=== PATIENT | female | born 2000 | race Two or more races ===

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

== ENCOUNTER 2024-02-14 23:49 | Emergency (ER) | payer BC, MEDICAID ==
[~2024-02-14] VITALS: Ht 157.5 cm; Wt 58.5 kg
[~2024-02-14 23:49] MED LIST changes: -CEPH-322 PO; +CEPH250C PO; +DOCU-265 PO; +HYDR-4902 PO; +IBUP-1455 PO
[2024-02-15] MEDS ORDERED: PRED20TA2 PO (02:58)
[2024-02-15] MEDS ORDERED: ACET500T58 PO (02:58)
[2024-02-15] MEDS ORDERED: AMOX875T4 PO (02:58)
[2024-02-15 03:30] VITALS: BP 120/64; PULSE 95; RESP 18; TEMP 97.9; O2SAT 97
== END 2024-02-15 03:34 | disposition home or self-care (01) ==
LOC: ER 23:49
DX: J03.90 Acute tonsillitis, unspecified (principal); R59.0 Localized enlarged lymph nodes; Z88.6 Allergy status to analgesic agent
CPT/HCPCS: 70490

== ENCOUNTER 2024-04-17 18:00 | Emergency (ER) | payer MEDICAID ==
[~2024-04-17] VITALS: Ht 157.5 cm; Wt 64.0 kg
[~2024-04-17 18:00] MED LIST changes: +ACET500T58 PO; +AMOX875T4 PO; +PRED20TA2 PO
--- NOTE | 2024-04-17 18:38 | ED.PDOC ---
History of Present Illness HPI Comments 23-year-old female presents with a chief complaint of syncope x onset 0300 this morning with associated headache, nausea, vomiting, and dizziness. Patient reports that she cannot recall all the events that occurred, but remembers that she was on her bed and then lost consciousness. Patient currently has no active vomiting at this time. Patient reports one episode of emesis. Patient is alert and oriented x 4. No other symptoms or modifying factors present at this time. Chief Complaint: Head Injury Time Seen by MD: 18:20 Primary Care Provider: UNKNOWN Reviewed Notes: Medications, Allergies Allergies: Coded Allergies: Oxcarbazepine (Verified Allergy, Unknown, 12/09/21) Home Meds Active Scripts Ondansetron Odt 4MG Tab (ZOFRAN PO) 4 Mg Tb, 4 MG PO Q8HPRN PRN for 3 Days, #9 TAB ODT TAB-DISSOLVE IN MOUTH, THEN SWALLOW Prov:STEPAN MARTINEZ MD 04/17/24 Acetaminophen (Acetaminophen Er) 650 Mg Tab, 650 MG PO Q6HPRN PRN for 5 Days, #20 TAB Prov:STEPAN MARTINEZ MD 04/17/24 Prednisone (Prednisone) 20 Mg Tab, 20 MG PO BID for 5 Days, #10 TAB 0 Refills Prov:AMOS ARRINGTON 02/15/24 Acetaminophen (Acetaminophen) 500 Mg Tab, 500 MG PO Q4HPRN, #30 TAB 0 Refills Prov:AMOS ARRINGTON 02/15/24 Amoxicillin & Pot Clavulanate (Amoxicillin/Potassium Cla) 875 Mg Tab, 1 TAB PO BID for 7 Days, #14 TAB 0 Refills Prov:AMOS ARRINGTON 02/15/24 Hydrocodone-Acetaminophen (Hydrocodone Bitartrate/AC 5-325 mg) 1 Tab Tab, 1 TAB PO Q6HPRN PRN, #15 TAB Prov:JACOBFANNIE Y 12/15/21 Ibuprofen Micronized (Ibuprofen) 800 Mg Tab, 800 MG PO Q8HP PRN, #20 TAB Prov:FANNIE JACOB Y DO 12/15/21 Docusate Sodium (Docusate Sodium) 100 Mg Cap, 100 MG PO Q12HR PRN, #30 CAP Prov:FANNIE JACOB DO 12/15/21 Reported Medications Cephalexin (KEFLEX CAPSULE) 250 Mg Cp, 500 MG PO QID for 7 Days 12/02/21 Vit W/ Ferrous Fumara (PNV PLUS MULTIVI) Plus Tab, 1 OR DAILY, TAB 10/23/21 Information Source: Patient Mode of Arrival: Wheelchair Severity: Moderate Timing: Hours Duration: Since onset Prehospital treatment: None Vital Signs Vital Signs Date Time Temp Pulse Resp B/P (MAP) Pulse Ox O2 Delivery O2 Flow Rate FiO2 04/17/24 20:41 98.2 102 16 133/86 (102) 97 98.2 Physical Exam General: Awake, alert and oriented. No acute distress. Skin: Skin in warm, dry and intact. Appropriate color for ethnicity. Nailbeds p ink with no cyanosis. HEENT: The head is normocephalic and atraumatic. Conjunctivae are clear without exudates or hemorrhage. Sclera is non-icteric. EOM are intact. No signs of nystagmus. Eyelids are normal in appearance without swelling or lesions. Oral mucosa is pink and moist Neck: The neck is supple with normal range of motion. No JVD. Cardiac: Heart rate and rhythm are normal. No murmurs, gallops, or rubs are auscultated. Respiratory: No signs of respiratory distress. Lung sounds are clear in all lobes bilaterally without rales, ronchi, or wheezes. Abdominal: Abdomen is soft, non-tender without distention. Bowel sounds are present and normoactive in all four quadrants. Extremities: Upper and lower extremities are atraumatic in appearance without deformity or edema. Neurological: The patient is awake, alert and oriented to person, place, and time with normal speech. Speech is clear. There is no facial asymmetry. Gait and tandem walk normal. Strength grossly intact. Psychiatric: Appropriate mood and affect. Good judgement and insight. No visual or auditory hallucinations. Review of Systems: REVIEW OF SYSTEMS: No fever, no chills, or fatigue HEENT: No sore throat, no earache, no congestion, no neck pain. Cardiac: No chest pain. No palpitations. Lungs: No shortness of breath, no cough. GI: Positive nausea and vomiting, no diarrhea, no constipation, no abdominal pain : No dysuria, frequency, or urgency. No hematuria. Musculoskeletal: No joint pain , no joint swelling, no extremity edema. Skin: No rash, no itching. Neuro: Positive headache, positive dizziness, no weakness Past Medical History PAST MEDICAL HISTORY: Depression Surgical History: Denies all surgeries INDUSTRIAL RELATIONS SPECIALIST History: No Pertinent INDUSTRIAL RELATIONS SPECIALIST History Family History Family History: Unknown Social History Smoker: Non-Smoker Alcohol: Denies ETOH Use Drugs: Denies Drug Use Lives In: Home Was a procedure done? Was a procedure done?: No Differential Dx Considerations may include: DDX includes MSK trauma, facial fractures, ICH or traumatic SAH, C-spine injury, other X-Ray, Labs, Meds, VS Vital Signs Date Time Temp Pulse Resp B/P (MAP) Pulse Ox O2 Delivery O2 Flow Rate FiO2 04/17/24 20:41 98.2 102 16 133/86 (102) 97 98.2 04/17/24 18:07 97.6 116 18 99/69 (79) 95 Time of 1ST Reevaluation: 18:50 Reevaluation 1ST: Unchanged Patient Education/Counseling: Diagnosis, Treatment, Prognosis Family Education/Counseling: No Family Present Departure 1 Departure Time of Disposition: 19:13 Impression: Primary Impression: Head injury Additional Impression: Headache Disposition: 01 HOME / SELF CARE / HOMELESS Condition: Stable Additional Instructions: ED DISCHARGE INSTRUCTIONS Instructions: Please read all instructions provided in this packet carefully. Although you have been discharged from the Emergency Department, this does not mean that you have a "clean bill of health". []No definitive diagnosis for your symptoms has been made today. It is possible that you are in the process of developing a serious illness. This is why you must return to the ED without fail if any new or worsening symptoms (especially if your symptoms include chest pain, trouble breathing, abdominal pain, fever, headache, confusion, trouble seeing, or trouble walking) It is also very important that you see a primary care doctor within the next 3-5 days to follow up. If you are unable to get an appointment, return to the ED for re-evaluation. Head Injury: Care Instructions Table of Contents Overview How can you care for yourself at home? When should you call for help? Credits Head Injury: Care Instructions Table of Contents Overview How can you care for yourself at home? When should you call for help? Credits Overview Most injuries to the head are minor. Bumps, cuts, and scrapes on the head and face usually heal well and can be treated the same as injuries to other parts of the body. Although it's rare, once in a while a more serious problem shows up after you are home. So it's good to be on the lookout for symptoms for a day or two. Follow-up care is a andrews part of your treatment and safety. Be sure to make and go to all appointments, and call your doctor if you are having problems. It's also a good idea to know your test results and keep a list of the medicines you take. How can you care for yourself at home? Follow your doctor's instructions. The doctor will tell you if you need someone to watch you closely for the next 24 hours or longer. Take it easy for the next few days or more if you are not feeling well. Ask your doctor when it's okay for you to go back to activities like driving a car, riding a bike, or operating machinery. When should you call for help? Call 911 anytime you think you may need emergency care. For example, call if: You have a seizure. You passed out (lost consciousness). You are confused or can't stay awake. You have a headache that gets worse and does not go away. You have new vision changes or one pupil (the black part in the middle of the eye) that is larger than the other. You have slurred speech, balance problems, or decreased coordination. Call your doctor now or seek immediate medical care if: You have new or worse vomiting. You feel less alert. You have new weakness or numbness in any part of your body. You have new symptoms, such as unclear thinking or changes in mood. Watch closely for changes in your health, and be sure to contact your doctor if: You do not get better as expected. Credits for Head Injury: Care Instructions Current as of: May 05, 2023 Author: [employer] Staff e-Prescriptions Ondansetron Odt 4MG Tab (ZOFRAN PO) 4 Mg Tb 4 MG PO Q8HPRN PRN for 3 Days, #9 TAB ODT TAB-DISSOLVE IN MOUTH, THEN SWALLOW Prov: STEPAN MARTINEZ MD 04/17/24 Acetaminophen (Acetaminophen Er) 650 Mg Tab 650 MG PO Q6HPRN PRN for 5 Days, #20 TAB Prov: STEPAN MARTINEZ MD 04/17/24 Comments 22-year-old female with head injury and suspected or loss of consciousness. Patient neurologically intact during the ED evaluation. Thayer stable for discharge home with prompt follow up with primary care provider and return precautions. I reviewed the following notes from the pt's past medical encounters: Previous visit 02/15/2024 The following tests were ordered, and results were reviewed by me: Labs and imaging Additional information was gathered from interviewing the following independent historians: Aboriginal Community Council Member at bedside I reviewed and agreed with the following test results read by other providers: CT head, no acute intracranial hemorrhage or skull fracture. Agree with radiologist's interpretation I discussed treatments and results with patient. Critical Care Note Critical Care Time?: No Stability Stability form required: No I personally scribed for STEPAN MARTINEZ MD ([email or web address]) on 04/17/24 at 18:38. Electronically submitted by Leonardo Rizvi ([email or web address]). STEPAN MARTINEZ MD Apr 17, 2024 18:38
[2024-04-17] MEDS ORDERED: ZOFR4T PO (19:16)
[2024-04-17] MEDS ORDERED: ACET650T12 PO (19:16)
--- NOTE | 2024-04-17 20:49 | DVH ---
Exam: CT HEAD WITHOUT CONTRAST History: head injury, unk LOC Technique: [address] images through the posterior fossa and the supratentorial compart ment were acquired without contrast and imaged using soft tissue and bone algorithms. RADIATION DOSE: DLP 1067.69 mGy.cm; CTDI vol 54.17 mGy. Comparison: CT NECK WITHOUT CONTRAST on DOS: 02/15/24 Findings: There is no evidence of an intracranial hemorrhage, acute large vessel infarct, mass effect, or midli ne shift. Mucoperiosteal thickening of the left maxillary sinus. The calvarium, orbits, remaining paranasal sin uses, sella, middle ears, and mastoids are unremarkable. The superficial soft tissues are within normal limits. Impression: 1. No acute intracranial abnormality.
[2024-04-17] MEDS: ACETAMINOPHEN 325 MG TAB PO ONE (23:26)
[2024-04-17] MEDS: ONDANSETRON ODT 4 MG TAB PO ONE (23:26)
[2024-04-17 23:36] VITALS: BP 123/81; PULSE 87; RESP 20; TEMP 98.2; O2SAT 99
== END 2024-04-17 23:41 | disposition home or self-care (01) ==
LOC: ER 18:00
DX: S09.90XA Unspecified injury of head, initial encounter (principal); R55 Syncope and collapse; R42 Dizziness and giddiness; Z79.52 Long term (current) use of systemic steroids; X58.XXXA Exposure to other specified factors, initial encounter; Y93.89 Activity, other specified; Y92.89 Other specified places as the place of occurrence of the external cause; Y99.8 Other external cause status
CPT/HCPCS: 70450; 99284; Q0162; 81025

== ENCOUNTER 2024-05-04 19:26 | Emergency (ER) | payer MEDICAID ==
[~2024-05-04] VITALS: Ht 157.5 cm; Wt 62.0 kg
[~2024-05-04 19:26] MED LIST changes: +ACET650T12 PO; +ZOFR4T PO
--- NOTE | 2024-05-04 20:20 | ED.PDOC ---
HPI (NEURO) HPI Comments This is a 23-year-old female presents to the ED for medical clearance. 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 Patient states it was 1 episode and has resolved since. She notes history of epilepsy when she was young she was on medication as a child however denies any medications right now last seizure when she was 5. She reports no chest pain, shortness of breath, dizziness, difficulty breathing, abdominal pain, belly pain, seizure activity, fevers or chills. Time Seen by MD: 20:11 Primary Care Provider: UNKNOWN Reviewed Notes: Nurses Notes, Medications, Allergies Information Source: Patient Severity: Mild Past Medical History PAST MEDICAL HISTORY: Depression Past Medical History (Other): Epilepsy Surgical History: Denies all surgeries CRIMPER ASSEMBLER History: No Pertinent CRIMPER ASSEMBLER History Family History Family History: Reviewed,noncontributory to illness, Unknown Social History Smoker: Non-Smoker Alcohol: Denies ETOH Use Drugs: Denies Drug Use Lives In: Home Constitutional: denies: chills, diaphoresis, fatigue, fever, malaise, sweats, weakness, others EENTM: denies: blurred vision, double vision, ear bleeding, ear discharge, ear drainage, ear pain, ear ringing, eye pain, eye redness, hearing loss, mouth pain, mouth swelling, nasal discharge, nose bleeding, nose congestion, nose pain, photophobia, tearing, throat pain, throat swelling, voice changes, others Respiratory: denies: cough, hemoptysis, orthopnea, SOB at rest, shortness of breath, SOB with excertion, stridor, wheezing, others Cardiovascular: denies: chest pain, dizzy spells, diaphoresis, Dyspnea on exertion, edema, irregular heart beat, left arm pain, lightheadedness, palpitations, PND, syncope, others Gastrointestinal: denies: abdomen distended, abdominal pain, blood streaked bowels, constipated, diarrhea, dysphagia, difficulty swallowing, hematemesis, melena, nausea, poor appetite, poor fluid intake, rectal bleeding, rectal pain, vomiting, others Genitourinary: denies: abnormal vagina bleeding, burning, dyspareunia, dysuria, flank pain, frequency, hematuria, incontinence, pain, , vagina discharge, urgency, others Neurological: denies: dizziness, fainting, headache, left sided numbness, left sided weakness, numbness, paresthesia, pre-existing deficit, right sided numbness, right sided weakness, seizure, speech problems, tingling, tremors, weakness, others Musculoskeletal: denies: back pain, gout, joint pain, joint swelling, muscle pain, muscle stiffness, neck pain, others Integumetry: denies: bruises, change in color, change in hair/nails, dryness, laceration, lesions, lumps, rash, wounds, others Allergic/Immunocompromised: denies: Difficulty Healing, Frequent Infections, Hives, Itching, others Hematologic/Lymphatic: denies: anemia, blood clots, easy bleeding, easy bruising, swollen glands, others Endocrine: denies: excessive hunger, excessive sweating, excessive thirst, excessive urination, flushing, intolerance to cold, intolerance to heat, unexplained weight gain, unexplained weight loss, others Psychiatric: denies: anxiety, bipolar disorder, depression, hopeless, panic disorder, schizophrenia, sleepless, suicidal, others Physical Exam General Appearance: No Apparent Distress, Normal HEENT: Normal ENT Inspection, Pharynx Normal, TMs Normal Neck: Full Range of Motion, Non-Tender, Normal, Normal Inspection Respiratory: Chest Non-Tender, Lungs Clear, No Accessory Muscle Use, No Respiratory Distress, Normal Breath Sounds Cardiovascular: No Edema, No JVD, No Murmur, No Gallop, Normal Peripheral Pulses, Regular Rate/Rhythm Breast Exam: Deferred Gastrointestinal: No Organomegaly, Non Tender, No Pulsatile Mass, Normal Bowel Sounds, Soft Genitalia: Deferred Pelvic: Deferred Rectal: Deferred Extremities: Normal capillary refill, Normal inspection, Normal range of mot ion, Non-tender, No pedal edema Musculoskeletal : Apperance: Normal Neurologic: Alert, agriculture extension specialist II-XII nml as Tested, No Motor Deficits, Normal Affect, Normal Mood, No Sensory Deficits Cerebellar Function: Normal Reflexes: Normal Skin: Dry, Normal Color, Warm Lymphatic: No Adenopathy Was a procedure done? Was a procedure done?: No Differential Diagnosis (SZ) General Weakness: Electrolyte imbalance, Hypoglycemia X-Ray, Labs, Meds, VS Comment Physical exam grossly benign. Patient denies any symptoms at this time. Patient claimed to work on a forklift advised to follow up with her PCP in 2-3 days for re-evaluation. ER return precautions given patient indicated unde rstanding agrees with discharge plan of care. Time of 1ST Reevaluation: 20:16 Reevaluation 1ST: Improved Patient Education/Counseling: Diagnosis, Treatment, Prognosis, Need For Follow Up Family Education/Counseling: No Family Present Departure 1 Departure Time of Disposition: 20:16 Impression: Primary Impression: Dizziness and giddiness Disposition: 01 HOME / SELF CARE / HOMELESS Condition: Stable Additional Instructions: Physical exam grossly benign. Patient is asymptomatic. Patient clear to work on [employer]. Discharged With: Self Critical Care Note Critical Care Time?: No Stability Stability form required: DENISA Barrow [facility] May 04, 2024 20:20
[2024-05-04 22:00] VITALS: BP 102/77; PULSE 92; RESP 16; TEMP 97.8; O2SAT 99
== END 2024-05-04 22:29 | disposition home or self-care (01) ==
LOC: ER 19:26
DX: R42 Dizziness and giddiness (principal); G40.909 Epilepsy, unspecified, not intractable, without status epilepticus

== ENCOUNTER 2024-05-23 15:44 | Emergency (ER) | payer MEDICAID ==
[~2024-05-23] VITALS: Ht 157.5 cm; Wt 59.0 kg
[2024-05-23 16:00] VITALS: BP 111/78; PULSE 92; RESP 15; O2SAT 97
--- NOTE | 2024-05-23 17:11 | ED.PDOC ---
Eye-HPI HPI Comments 23 year old with hx of epilepsy presents for tooth pain x 2 days located to the LLQ Last dental apt today and is pending insurance authorization for wisdom tooth extraction C/o pain rated 8/10 No other complaint. Denies c/p sob Chief Complaint: Tooth Pain Time Seen by MD: 17:00 Primary Care Provider: UNKNOWN Reviewed Notes: Nurses Notes, Medications, Allergies Allergies: Coded Allergies: Oxcarbazepine (Verified Allergy, Unknown, 12/09/21) Home Meds Active Scripts Acetaminophen W/ Codeine (Tylenol W/Cod #3) 1 Tab Tb, 1 TAB PO Q8HP PRN for 5 Days, #15 TAB 0 Refills Prov:AMADEO SWARTZ OUTSIDE RESIDENTIAL SALES PROFESSIONAL 05/23/24 Ondansetron Odt 4MG Tab (ZOFRAN PO) 4 Mg Tb, 4 MG PO Q8HPRN PRN for 3 Days, #9 T AB ODT TAB-DISSOLVE IN MOUTH, THEN SWALLOW Prov:STEPAN MARTINEZ MD 04/17/24 Acetaminophen (Acetaminophen Er) 650 Mg Tab, 650 MG PO Q6HPRN PRN for 5 Days, #20 TAB Prov:STEPAN MARTINEZ MD 04/17/24 Prednisone (Prednisone) 20 Mg Tab, 20 MG PO BID for 5 Days, #10 TAB 0 Refills Prov:AMOS ARRINGTON 02/15/24 Acetaminophen (Acetaminophen) 500 Mg Tab, 500 MG PO Q4HPRN, #30 TAB 0 Refills Prov:AMOS ARRINGTON 02/15/24 Amoxicillin & Pot Clavulanate (Amoxicillin/Potassium Cla) 875 Mg Tab, 1 TAB PO BID for 7 Days, #14 TAB 0 Refills Prov:AMOS ARRINGTON 02/15/24 Hydrocodone-Acetaminophen (Hydrocodone Bitartrate/AC 5-325 mg) 1 Tab Tab, 1 TAB PO Q6HPRN PRN, #15 TAB Prov:JACOBFANNIE Y DO 12/15/21 Ibuprofen Micronized (Ibuprofen) 800 Mg Tab, 800 MG PO Q8HP PRN, #20 TAB Prov:JACOBVALZMA Y DO 12/15/21 Docusate Sodium (Docusate Sodium) 100 Mg Cap, 100 MG PO Q12HR PRN, #30 CAP Prov:JACOBVALZMARY Y DO 12/15/21 Reported Medications Cephalexin (KEFLEX CAPSULE) 250 Mg Cp, 500 MG PO QID for 7 Days 12/02/21 Vit W/ Ferrous Fumara (PNV PLUS MULTIVI) Plus Tab, 1 OR DAILY, TAB 10/23/21 Information Source: Patient Mode of Arrival: Ambulatory Past Medical History PAST MEDICAL HISTORY: Depression Surgical History: Denies all surgeries CASHIERS BUSSERS FOOD RUNNERS History: No Pertinent CASHIERS BUSSERS FOOD RUNNERS History Family History Family History: Reviewed,noncontributory to illness, Unknown Social History Smoker: Non-Smoker Alcohol: Denies ETOH Use Drugs: Denies Drug Use Lives In: Home All Other Systems: Reviewed and Negative (per hpi) Physical Exam General Appearance: No Apparent Distress, Normal HEENT: Normal ENT Inspection, Pharynx Normal, Other Neck: Full Range of Motion, Non-Tender, Normal, Normal Inspection Respiratory: Chest Non-Tender, Lungs Clear, No Accessory Muscle Use, No Respiratory Distress, Normal Breath Sounds Cardiovascular: No Edema, No JVD, No Murmur, No Gallop, Normal Peripheral Pulses, Regular Rate/Rhythm Breast Exam: Deferred Gastrointestinal: No Organomegaly, Non Tender, No Pulsatile Mass, Normal Bowel Sounds, Soft Genitalia: Deferred Pelvic: Deferred Rectal: Deferred Extremities: No calf tenderness, Normal capillary refill, Normal inspection, Normal range of motion, Non-tender, No pedal edema Musculoskeletal : Apperance: Normal Neurologic: Alert, roughener II-XII nml as Tested, No Motor Deficits, Normal Affect, Normal Mood, No Sensory Deficits Cerebellar Function: Normal Reflexes: Normal Skin: Dry, Normal Color, Warm Lymphatic: No Adenopathy Was a procedure done? Was a procedure done?: No EENT DIFF Eye: Other X-Ray, Labs, Meds, VS Vital Signs Date Time Temp Pulse Resp B/P (MAP) Pulse Ox O2 Delivery O2 Flow Rate FiO2 05/23/24 16:04 Room Air 0 05/23/24 16:00 98.6 92 15 111/78 (89) 97 Current Medications Medications (Trade) Dose Ordered Sig/Maya Route Start Time Stop Time Status Last Admin Acetaminophen/ Hydrocodone Bitart ([place] 7.5/325MG Tab) 1 tab ONCE ONCE PO 05/23/24 17:15 05/23/24 17:16 DC 05/23/24 17:41 Methylprednisolone Sodium Succinate (Solu Medrol) 125 mg ONCE ONCE IM 05/23/24 17:15 05/23/24 17:16 DC 05/23/24 17:41 Benzocaine (Hurricaine [place]) 1 spr ONCE ONCE MT 05/23/24 17:15 05/23/24 17:16 DC 05/23/24 17:41 X-Ray, Labs, Meds, VS Comment On reevaluation, patient had symptomatic improvement. Patient is stable for discharge at this time. External notes reviewed. Test results and diagnostic imaging interpreted. All diagnostic findings, discharge care, education and instructions provided Follow-up with dental provider in 24-48 hours. Patient verbalized understanding and agreed to treatment plan Vital signs stable, afebrile, no acute distress noted Patient ambulatory with strong steady gait Advised to return precautions for any new or worsening symptoms, return to ER immediately for re-evaluation Patient is aware that the purpose of this visit was for an acute medical emergency requiring emergent stabilization. Chronic conditions, including malignancies have not been ruled out. Patient is instructed to follow up with PCP as directed and discharge instructions for continued care and workup. If un able to arrange follow-up, patient is to return to the emergency department for reassessment. Patient (parent or legal guardian if applicable) was given verbal and written discharge instructions and acknowledges understanding. Time of 1ST Reevaluation: 17:00 Reevaluation 1ST: Improved Patient Education/Counseling: Diagnosis, Treatment Family Education/Counseling: Diagnosis, Treatment Departure 1 Departure Time of Disposition: 17:28 Impression: Primary Impression: Tooth pain Disposition: HOME / SELF CARE / HOMELESS Condition: Stable e-Prescriptions Acetaminophen W/ Codeine (Tylenol W/Cod #3) 1 Tab Tb 1 TAB PO Q8HP PRN for 5 Days, #15 TAB 0 Refills Prov: AMADEO SWARTZ NP 05/23/24 Discharged With: Self Critical Care Note Critical Care Time?: No Stability Stability form required: No Heart Score Heart Score: Heart Score Response (Comments) Value History N/A 0 EKG N/A 0 Age N/A 0 Risk Factors N/A 0 Troponin N/A 0 Total 0 AMADEO SWARTZ NP May 23, 2024 17:11
[2024-05-23] MEDS ORDERED: ACE3T PO (17:30)
[2024-05-23] MEDS: BENZOCAINE (DENTAL) 20 % SPRAY 60ML MT ONE (17:41)
[2024-05-23] MEDS: methylPREDNISolone SOD SUCC 125 MG/2 ML VL IM ONE (17:41)
[2024-05-23] MEDS: HYDROcodone-ACET 7.5/325MG TAB PO ONE (17:41)
== END 2024-05-23 17:53 | disposition home or self-care (01) ==
LOC: ER 15:44
DX: K08.89 Other specified disorders of teeth and supporting structures (principal); Z88.8 Allergy status to other drugs, medicaments and biological substances; Z79.899 Other long term (current) drug therapy
CPT/HCPCS: 96372; 99283; J2919

== ENCOUNTER → 2024-08-18 | Outpatient (CLI) | payer MEDICAID ==
[~2024-08-18] MED LIST changes: +ACE3T PO
[2024-08-18 09:02] LABS: Basophils # (auto) 0.1 10 ^3/uL (0-0.2); Eosinophils # (auto) 0.2 10 ^3/uL (0-0.8); Hematocrit 45.9 % (36.0-46.0); Hemoglobin 15.7 g/dL (12.2-16.2); Lymphocytes # (auto) 3.8 10 ^3/uL (0.4-5.4); Lymphocytes % (auto) 46.3 % (10.0-50.0); Mean Corpuscular Hemoglobin 29.7 pg (28.0-32.0); Mean Corpuscular Hgb Conc. 34.2 g/dL (32.0-36.0); Monocytes # (auto) 0.6 10 ^3/uL (0-1.3); Monocytes % (auto) 6.8 % (0.0-12.0); Neutrophils # (auto) 3.6 10 ^3/uL (1.6-8.6); Neutrophils % (auto) 43.9 % (37.0-80.0); Nucleated Red Blood Cells % 0.1 %; Platelet Count (auto) 258 10^3/uL (140-450); Red Blood Cells 5.28 10^6/uL (4.0-5.20); Red Cell Distribution Width 13.1 % (11.8-14.3); White Blood Cell 8.2 10^3/uL (4.4-10.8)
== END | disposition home or self-care (01) ==
LOC: LAB 08:25
DX: E55.9 Vitamin D deficiency, unspecified (principal); R73.03 Prediabetes; R79.89 Other specified abnormal findings of blood chemistry
CPT/HCPCS: 36415; 82306; 83036; 84439; 84443; 85025